=== PATIENT | female | born 1975 | race African-American/Black ===

== ENCOUNTER 2020-08-17 10:30 | Emergency (ER) | payer MEDICARE, MEDICAID ==
--- NOTE | 2020-08-17 11:23 | ER Document Report ---
ED Medical Screen (RME) - General Chief Complaint: Shoulder Pain Stated Complaint: SHOULDER PAIN Time Seen by Provider: 08/17/20 11:20 Mode of Arrival: Ambulatory Information source: Patient Notes: 45-year-old female presented to ED for swollen and pain to the right shoulder arm all the way to the fingers. She does have numbness and swelling to the arm. She states it feels just like when she had a blood clot in her left arm. She does have a history of cancer but that is 15 years out but she still does see the oncologist. Patient has full range of motion to the arm but she states it i s tender to palpation and to movement. Denies smoking that she had radiation 15 years ago but nothing going on now. We will get blood in the Doppler of this arm. The arm is pressure and achy5/5 I have greeted and performed a rapid initial assessment of this patient. A comprehensive ED assessment and evaluation of the patient, analysis of test results and completion of medical decision making process will be conducted by an additional ED providers. - Related Data Allergies/Adverse Reactions: cefazolin [From Ancef] Allergy (Verified 08/17/20 11:17) meperidine [From Demerol] Allergy (Verified 08/17/20 11:17) morphine Allergy (Verified 08/17/20 11:17) Penicillins Allergy (Verified 08/17/20 11:17) Physical Exam - Vital signs Vitals: Temp Pulse Resp BP Pulse Ox 98.1 F 91 24 H 129/88 H 99 08/17/20 10:38 08/17/20 10:38 08/17/20 10:38 08/17/20 10:38 08/17/20 10:38 Course - Vital Signs Vital signs: Temp Pulse Resp BP Pulse Ox 98.1 F 91 24 H 129/88 H 99 08/17/20 10:38 08/17/20 10:38 08/17/20 10:38 08/17/20 10:38 08/17/20 10:38
[2020-08-17 11:59] LABS: ABSOLUTE EOSINOPHILS # (AUTO) 0.2 10^3/uL (0.0-0.6); ABSOLUTE LYMPHOCYTES (AUTO) 0.9 10^3/uL (0.5-4.7); ABSOLUTE MONOCYTES (AUTO) 0.3 10^3/uL (0.1-1.4); ABSOLUTE NEUT (AUTO) 2.6 10^3/uL (1.7-8.2); EOSINOPHILS % (AUTO) 4.1 % (0-6); HEMATOCRIT 39.8 % (36.0-47.0); HEMOGLOBIN 13.3 g/dL (12.0-15.5); LYMPHOCYTES % (AUTO) 22.1 % (13-45); MEAN CORPUSCULAR HEMOGLOBIN 30.1 pg (27.0-33.4); MEAN CORPUSCULAR HGB CONC 33.5 g/dL (32.0-36.0); MEAN CORPUSCULAR VOLUME 90 fl (80-97); MONOCYTES % (AUTO) 7.7 % (3-13); PLATELET COUNT 181 10^3/uL (150-450); RED BLOOD COUNT 4.42 10^6/uL (3.72-5.28); RED CELL DISTRIBUTION WIDTH 15.1 % (11.5-14.0); SEGMENTED NEUTROPHILS % (AUTO) 65.1 % (42-78); TOTAL CELLS COUNTED % (AUTO) 100 %
[2020-08-17 12:04] LABS: PROTHROMBIN TIME 12.4 SEC (11.4-15.4)
[2020-08-17 12:05] LABS: PARTIAL THROMBOPLASTIN TIME 25.8 SEC (23.5-35.8)
[2020-08-17 12:16] LABS: ALBUMIN 4.2 g/dL (3.5-5.0); ALKALINE PHOSPHATASE 69 U/L (38-126); ANION GAP 8 (5-19); ASPARTATE AMINO TRANSFERASE 48 U/L (14-36); BILIRUBIN,DIRECT 0.2 mg/dL (0.0-0.4); BILIRUBIN,TOTAL 0.7 mg/dL (0.2-1.3); BLOOD UREA NITROGEN 16 mg/dL (7-20); CALCIUM 9.7 mg/dL (8.4-10.2); CARBON DIOXIDE 27 mmol/L (22-30); CHLORIDE 104 mmol/L (98-107); GLUCOSE 100 mg/dL (75-110); POTASSIUM 4.3 mmol/L (3.6-5.0); TOTAL PROTEIN 7.6 g/dL (6.3-8.2)
--- NOTE | 2020-08-17 14:22 | ER Document Report ---
ED General - General Chief Complaint: Shoulder Pain Stated Complaint: SHOULDER PAIN Time Seen by Provider: 08/17/20 11:20 Mode of Arrival: Ambulatory - [facility] Notes: 45-year-old female presents with right arm swelling. Patient states she developed swelling to the right upper arm, base of neck and back on Saturday. She denies any known injury. Pain has progressed over the past couple days, feels like a throbbing and achy sensation. She is taken Tylenol and naproxen without much relief. She states that the way her arm feels a similar to when she had a blood clot on the right arm. She states about 15 years ago when she was undergoing treatment for Hodgkin's lymphoma she developed a blood clot in the right arm which was the site of her port/access. She currently is not on any anticoagulation. She also states that she had bilateral mastectomies done in 2006 or 2007 because the cancer has spread, she denies any previous issues with lymphedema. She is not currently on any blood thinners. She denies chest pain or shortness of breath. - Related Data Allergies/Adverse Reactions: cefazolin [From Ancef] Allergy (Verified 08/17/20 11:17) meperidine [From Demerol] Allergy (Verified 08/17/20 11:17) morphine Allergy (Verified 08/17/20 11:17) Penicillins Allergy (Verified 08/17/20 11:17) Past Medical History - General Information source: Patient - Social History Smoking Status: Unknown if Ever Smoked Family History: Reviewed & Not Pertinent Patient has homicidal ideation: No Review of Systems - Review of Systems Constitutional: No symptoms reported EENT: No symptoms reported Cardiovascular: denies: Chest pain Respiratory: denies: Short of breath Gastrointestinal: No symptoms reported Genitourinary: No symptoms reported Female Genitourinary: No symptoms reported Musculoskeletal: Back pain, Neck pain Skin: No symptoms reported Hematologic/Lymphatic: Blood clots - History of Neurological/Psychological: denies: Weakness Physical Exam - Vital signs Vitals: Temp Pulse Resp BP Pulse Ox 98.1 F 91 24 H 129/88 H 99 08/17/20 10:38 08/17/20 10:38 08/17/20 10:38 08/17/20 10:38 08/17/20 10:38 - General General appearance: Appears well, Alert In distress: None - HEENT Head: Normocephalic, Atraumatic Extraocular movements intact: Yes Pupils: PERRL Neck: Supple, Other - Tenderness to right trapezius area - Respiratory Breath sounds: Normal - Cardiovascular Rhythm: Regular Heart sounds: Normal auscultation Pulses: Normal: Radial Normal capillary refill: Yes - Abdominal Inspection: Obese - Extremities General upper extremity: Other - Mild swelling right upper arm. Right forearm and hand appear grossly similar in size to left side Arm: Other - Able to flex right bicep, overall has intact range of motion, no bony tenderness - Neurological Neuro grossly intact: Yes Cognition: Normal Orientation: AAOx4 - Psychological Associated symptoms: Normal affect - Skin Skin Temperature: Warm Course - Re-evaluation Re-evalutation: 45-year-old female with pain and swelling to her right upper arm, base of neck, atraumatic per her report. On exam she does have mild swelling present to the right upper arm, no erythema or obvious wounds, additionally some tenderness over the right trapezius area. 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 Given her history of blood clot, feel that ultrasound is warranted to evaluate for DVT. Exam not consistent with fracture. Possible she is having a muscle spasm. Less likely lymphedema given the overall general symmetric appearance of the lower arm/hand compared to the right side. We will start treatment with Toradol and Robaxin. 08/17/20 16:23 Ultrasound is negative for DVT. Per nursing, patient has been asking for Dilaudid and Benadryl, I do not think this is appropriate at this time. I would like to order oral medications however she has an allergy listed to morphine, nursing to reassess this allergy 08/17/20 16:48 I discussed the morphine allergy with patient, she states she just has an allergy to morphine where it causes itchiness, she has tolerated oral narcotic medications in the past. Updated her that there is no DVT or SVT present. It may be she has developed lymphedema. Will order a dose of Percocet now and discharge, patient states she will be calling her oncologist as soon as she leaves the ED. Return precautions given, patient stable at time of discharge. - Vital Signs Vital signs: Temp Pulse Resp BP Pulse Ox 98.2 F 89 18 145/92 H 97 08/17/20 17:12 08/17/20 17:12 08/17/20 17:12 08/17/20 17:12 08/17/20 17:12 - Laboratory Result Diagrams: 08/17/20 11:43 08/17/20 11:43 Laboratory results interpreted by me: 08/17/20 08/17/20 11:43 11:43 RDW 15.1 H AST 48 H ALT 48 H - Diagnostic Test Radiology reviewed: Image reviewed, Reports reviewed Discharge - Discharge Clinical Impression: Right arm pain Disposition: HOME, SELF-CARE Additional Instructions: Please have close follow-up with your oncologist. You may begin compression to the arm, such as Stanley wrap. Return to the emergency department for any concerning worsening symptoms.
[2020-08-17] MEDS ORDERED: KETOROLAC TROMETHAMINE 60 MG/2 ML SDV IM ONE (14:32)
[2020-08-17] MEDS ORDERED: METHOCARBAMOL 500 MG TABLET PO ONE (14:32)
--- NOTE | 2020-08-17 16:21 | RADIOLOGY REPORT (SQ) ---
EXAM DESCRIPTION: VENOUS UNILATERAL UPPER IMAGES COMPLETED DATE/TIME: 08/17/2020 4:10 pm REASON FOR STUDY: Pain swelling numbness to the right arm COMPARISON: None. TECHNIQUE: Dynamic and static way scale and color images acquired of the right arm venous system. S elected spectral images acquired with additional compression and augmentation maneuvers. The contrala teral subclavian vein and internal jugular vein were also imaged. Images stored on PACS. LIMITATIONS: None. FINDINGS: INTERNAL JUGULAR VEIN: Normal phasicity, compression, augmentation. No visualized echogeni c material on way scale. No defects on color images. Comparison opposite side normal. SUBCLAVIAN VEIN: Normal compression, augmentation. No visualized echogenic material on way scale. No defects on color images. AXILLARY VEIN: Normal compression, augmentation. No visualized echogenic material on way scale. No d efects on color images. BRACHIAL VEIN: Normal compression, augmentation. No visualized echogenic material on way scale. No d efects on color images. BASILIC VEIN: Normal compression, augmentation. No visualized echogenic material on way scale. No de fects on color images. CEPHALIC VEIN: Normal compression, augmentation. No visualized echogenic material on way scale. No d efects on color images. OTHER: No other significant finding. IMPRESSION: NO EVIDENCE DVT OR SVT IN THE RIGHT ARM. TECHNICAL DOCUMENTATION: JOB ID: [id number] 2010 [employer]- All Rights Reserved Reading location - IP/workstation name: [email or web address]
[2020-08-17] MEDS ORDERED: OXYCODONE-ACETAMINOPHEN 5-325 MG TABLET PO ONE (16:47)
[2020-08-17 17:13] VITALS: BP 145/92
== END 2020-08-17 17:13 | disposition home or self-care (01) ==
LOC: ER 10:30
DX: M79.601 Pain in right arm (principal); M79.89 Other specified soft tissue disorders; R22.1 Localized swelling, mass and lump, neck; M54.9 Dorsalgia, unspecified; M54.2 Cervicalgia; Z86.718 Personal history of other venous thrombosis and embolism; Z85.71 Personal history of Hodgkin lymphoma; Z88.1 Allergy status to other antibiotic agents; Z88.6 Allergy status to analgesic agent; Z88.5 Allergy status to narcotic agent; Z88.0 Allergy status to penicillin; Z90.13 Acquired absence of bilateral breasts and nipples
CPT/HCPCS: 99285; 96372; 36415; 85025; 85610; 85730; 80053; 93971; J1885; A9270 ×2